=== PATIENT | male | born 1995 | race Caucasian/White ===

== ENCOUNTER → 2023-08-25 | Outpatient (CLI) | payer OTHER ==
--- NOTE | 2023-08-25 11:27 | XR ---
EXAMINATION TYPE: XR Hip Complete LT DATE OF EXAM: 08/25/2023 COMPARISON: NONE HISTORY: Pain TECHNIQUE: 2 views submitted FINDINGS: There is no evidence of erosive change or acute fracture. Hypertrophic change of the acetabulum. 6 ch ronic-appearing deformity of the femoral head. IMPRESSION: 1. No evidence of acute fracture or dislocation. Chronic appearing deformity of the femoral head coul d be congenital or related to prior trauma versus femoral acetabular impingement. Consider follow-up MRI.
== END | disposition home or self-care (01) ==
LOC: RADXRMAIN 11:09
PROVIDERS: ATTEND Family Medicine
DX: M25.552 Pain in left hip (principal)
CPT/HCPCS: 73502

== ENCOUNTER → 2023-10-14 | Day surgery (SDC) | payer OTHER ==
[~2023-10-14] MED LIST: LIDOCAINE 1% INJ 10MG/ML (20 ML MDV) ONE; PROPOFOL 10 MG/ML 20 ML VIAL IV ONE
[2023-10-14] MEDS: LACTATED RINGERS 1,000 ML IV SCH (07:31)
[2023-10-14 07:33] VITALS: TEMP 97.5
[2023-10-14] MEDS: IV FLUID CONTINUATION 1,000 ML IV ONE ×2 (07:37→08:28)
--- NOTE | 2023-10-14 08:28 | P.PCN ---
Date of Procedure: 10/14/23 Procedure(s) Performed: Brief history: Patient is a pleasant 28-year-old white male scheduled for an elective upper endoscopy as well as colonoscopy as a part of evaluation of GERD/atypical chest pain and chronic diarrhea for the last several months duration. He is presently on Nexium 40 mg daily despite which continues to remain symptomatic with daily heartburn or chest pain. Also has chronic diarrhea with 4-6 loose watery bowel movements daily with no blood or mucus in the stool Procedure performed: Esophagogastroduodenoscopy with biopsy Colonoscopy with random biopsies Preoperative diagnosis: Atypical chest pain/GERD Chronic diarrhea Anesthesia: MAC Procedure: After informed consent was obtained from the patient was brought into the endoscopy unit and IV sedation was administered by anesthesia under continuous monitoring. Initially upper endoscopy was done. The Olympus GF 160 video endoscope was inserted inserted into the mouth and esophagus intubated without any difficulty and was gradually advanced into the stomach and duodenum and carefully examined. The bulb and second part of the duodenum appeared normal. Biopsies were done from the duodenum to evaluate for celiac disease. The scope was then withdrawn into the stomach adequately insufflated with air and upon careful examination the antrum had mild gastritis and biopsies were done from this area. Mucosa of the body, cardia and fundus appeared normal. The scope was then withdrawn into the esophagus. The GE junction was located at 40 cm to the incisors. It appeared regular with linear erosions consistent with LA grade B reflux esophagitis. . Rest of the esophagus appeared normal. Patient tolerated the procedure well. At this time the patient continued to remain sedation. Initial digital rectal examination was normal. Olympus CF 160 video colonoscope was then inserted into the rectum and gradually advanced to the cecum without any difficulty. Careful examination was performed as the scope was gradually being withdrawn. The prep was excellent. Terminal ileum was intubated in 20 cm visualized and appeared normal. The cecum, ascending colon, transverse colon, descending colon, sigmoid colon and rectum appeared normal. Random biopsies were done from the ascending and descending colon to rule out microscopic/collagenous colitis. Retroflexion was performed in the rectum and no lesions were noted. Patient tolerated the procedure well. Impression: 1. Upper endoscopy revealed mild antral gastritis and he notices the distal esophagus consistent with LA grade B reflux esophagitis. 2. Colonoscopy was within normal limits with no evidence of colitis or colorectal neoplasia Recommendations: Findings of this examination were discussed with the patient as well as his family. He was advised to follow-up with the biopsy results. In the meantime increase the Nexium to 20 mg twice daily to be taken half hour before breakfast and dinnertime and follow antireflux measures. Follow-up in the office in 3 to 4 weeks.
[2023-10-14 08:44] VITALS: RESP 16
[2023-10-14 08:56] VITALS: BP 128/79; PULSE 80
== END ==
LOC: ORWHC2ENDO 06:43
PROVIDERS: ATTEND Internal Medicine Gastroenterology
DX: K29.50 Unspecified chronic gastritis without bleeding (principal); K21.00 Gastro-esophageal reflux disease with esophagitis, without bleeding; F17.290 Nicotine dependence, other tobacco product, uncomplicated; Z79.899 Other long term (current) drug therapy; Z79.1 Long term (current) use of non-steroidal anti-inflammatories (NSAID)
CPT/HCPCS: 88305; 45380; 43239; J2001; J2704